=== PATIENT | female | born 1995 | race Caucasian/White ===

== ENCOUNTER 2017-11-05 10:58 | Emergency (ER) ==
[2017-11-05 11:04] VITALS: BP 122/57; TEMP 98.6; BMI 21.0
--- NOTE | 2017-11-05 11:38 | ED.PDOC ---
General ED Provider: Dr. TANVIR BREWER Chief Complaint: Back Pain Stated Complaint: Low back pain. 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 Believes it is due to bending and stretching associates with her job function. Denies other associated trauma although pt states has previously been involve in accidents and falling down events. Was not bothered by pain pror to most recent events. Denies radiculating symptoms-primarily located in lower lumbar spine midline. Denies symptoms and chance of . States FDLMP 1 mo ago with anticipation of startiing her menses in next few days. Time Seen by Physician: 11:30 Mode of Arrival: Walk-In Information Source: Patient Exam Limitations: No limitations Primary Care Provider: TANVIR ALLEN Nursing and Triage Documentation Reviewed and Agree: Yes Reviewed sepsis parameters & appropriate labs ordered?: Yes System Inflammatory Response Syndrome: Not Applicable Sepsis Protocol: For patient's 13 years and over: Temp is 96.8 and below OR 101 and greater Pulse >90 BPM Resp >20/minute Acutely Altered Mental Status Are patient's symptoms suggestive of a new infection, such as: -Pneumonia -Skin, Soft Tissue -Endocarditis -UTI -Bone, Joint Infection -Implantable Device -Acute Abdominal Infection -Wound Infection -Meningitis -Blood Stream Catheter Infection -Unknown System Inflammatory Response Syndrome: Not Applicable Musculoskeletal Complaint Exam - Back Pain Complaint/Exam Mechanism of Injury: Reports: No known trauma Symptoms Are: Still present Timing: Constant Episodes Lasting: Minutes Initial Severity: Moderate Current Severity: Moderate Location: Reports: Discrete, Radiating (Coccyx) Character: Reports: Aching, Spasmodic Aggravating: Reports: Movements Alleviating: Reports: Rest, Heat, OTC meds Associated Signs and Symptoms: Denies: Swelling, Redness, Bruising, Fever, Weakness, Numbness, Tingling, Abdominal pain, Flank pain, Bladder incontinence, Bowel incontinence, Weight loss, Pain with weight bearing Related History: Reports: Occupational injury, Previous back injury. Denies: Similar episode TAD Risk Factors: Reports: None AAA Risk Factors: Reports: None Cauda Equina Risk Factors: Reports: None Epidural Abcess Risk Factors: Reports: None Related Surgical History: Reports: None Focal Tenderness: Yes Paraspinal Muscle Tenderness: Yes Paraspinal Muscle Spasm: Yes (Lt sided >Rt Sided Lumbar sacral region) Scoliosis: No Lordosis: No Kyphosis: No SLR Test: Right Negative, Left Negative Focal Weakness: Present: None Focal Sensory Loss: Present: None Gait: Present: Normal Differential Diagnoses: Strain Review of Systems - Review Of Systems Constitutional: Reports: No symptoms Eyes: Reports: No symptoms Ears, Nose, Mouth, Throat: Reports: No symptoms Respiratory: Reports: No symptoms Cardiac: Reports: No symptoms GI: Reports: No symptoms : Reports: No symptoms Musculoskeletal: Reports: Back pain Skin: Reports: No symptoms Neurological: Reports: No symptoms Endocrine: Reports: No symptoms Hematologic/Lymphatic: Reports: No symptoms All Other Systems: Reviewed and Negative Past Medical History - Past Medical History Previously Healthy: Yes Endocrine: Reports: None Cardiovascular: Reports: None Respiratory: Reports: None Hematological: Reports: None Gastrointestinal: Reports: None Genitourinary: Reports: None Neuro/Psych: Reports: None Musculoskeletal: Reports: None Cancer: Reports: None Last Menstrual Period: october 07, 2017 - Surgical History General Surgical History: Reports: None - Family History Family History: Reports: None - Social History Smoking Status: Current every day smoker, Heavy tobacco smoker Hx Substance Use: Yes Alcohol Screening: None - Immunizations Tetanus Shot up to Date: Yes Physical Exam - Physical Exam Appearance: Well-appearing, Well-nourished Ill-appearing: None Pain Distress: Moderate Eyes: BRIGETTE, EOMI, Conjunctiva clear ENT: Ears normal, Nose normal, Oropharynx normal Respiratory: Airway patent, Breath sounds clear, Breath sounds equal, Respirations nonlabored Cardiovascular: RRR, Pulses normal, No rub, No murmur GI/: Soft, Nontender, No masses, Bowel sounds normal, No Organomegaly Musculoskeletal: Normal strength (Tenderness to palpation Lumbar spine-Mid lumbar region none SI or SC), ROM intact (neg slr ), No edema, No calf tenderness, Limited ROM (Minimal decreased forward flexion ,rotation and sidebending wnl) Skin: Warm, Dry, Normal color Neurological: Sensation intact, Motor intact, Reflexes intact, Cranial nerves intact, Alert, Oriented Psychiatric: Affect appropriate, Mood appropriate Re-Evaluation - Re-Evaluation Time of Re-Evaluation: 12:30 Status: Unchanged Vital Signs Stable: Yes Additional Comments: Advised patient UCG Is Positive. Unable to do imaging Critical Care Note - Critical Care Note Total Time (mins): 0 Course - Course Orders, Labs, Meds: Lab Review 11/05/17 11/05/17 11:53 11:59 Urine Color Dark Urine Clarity Slightly Urine pH 7.0 Ur Specific [place] 1.025 Urine Protein Trace Urine Glucose (UA) Negative Urine Ketones Trace Urine Blood 3+ Urine Nitrite Negative Urine Bilirubin Negative Urine Urobilinogen 1.0 Ur Leukocyte Esterase Negative Urine Microscopic RBC 20-30 Urine Microscopic WBC 5-10 Ur Squamous Epith Cells 0-2 Urine Bacteria Trace Urine Test Positive Orders Category Date Time Status UA [URINALYSIS C & S IF INDICATED] Stat LAB 11/05/17 11:59 Completed URINE CULTURE Stat LAB 11/05/17 12:09 Received URINE Stat LAB 11/05/17 11:53 Completed Vital Signs: Temp Pulse Resp BP Pulse Ox 11/05/17 10:58 98.6 F 98 H 16 122/57 L 98 Departure - Departure Time of Disposition: 13:30 Disposition: HOME SELF-CARE Discharge Problem: Lumbar strain, , test positive Instructions: Low Back Strain (ED) Condition: Good Pt referred to PMD for follow-up: Yes IPMP verified?: No Additional Instructions: Avoid working until follow up with Dr Ludwig Avoid NSAID analgesics OK to use Tylenol for pain as needed. Pre vitamin Rx -Take 1 daily Allergies/Adverse Reactions: Allergies No Known Drug Allergies Adverse Reaction (Verified 11/05/17 11:06) Home Medications: Ambulatory Orders Diphenhydramine HCl [Benadryl] 50 mg PO Q6H PRN 05/27/15 Ibuprofen 600 mg PO Q4H PRN 16/15 Prenat Vit 17/Iron/Folic/Om3,6 [Elite-Ob 400 Capsule] 1 each PO DAILY #30 capsule 11/05/17 Disposition Discussed With: Patient
== END 2017-11-05 13:46 | disposition home or self-care (01) ==
LOC: ED 10:58
DX: S39.012A Strain of muscle, fascia and tendon of lower back, initial encounter (principal); Z33.1 Pregnant state, incidental; X50.9XXA Other and unspecified overexertion or strenuous movements or postures, initial encounter; F17.210 Nicotine dependence, cigarettes, uncomplicated
CPT/HCPCS: 81001; 81025; 87086; 99283

== ENCOUNTER 2018-11-08 10:18 | Emergency (ER) ==
[2018-11-08 10:27] VITALS: BP 118/80; TEMP 98.1; BMI 26.9
[2018-11-08] MEDS ORDERED: SODIUM CHLORIDE 1,000 ML IV STA (11:05)
[2018-11-08] MEDS ORDERED: ZOFRAN 4 MG/2 ML IVP STA (11:30)
--- NOTE | 2018-11-08 11:43 | US ---
EXAM: OB ultrasound HISTORY: , pain. FINDINGS: OB ultrasound transvaginal. Transvaginal approach imaging was performed for improved reso lution and anatomic definition. Single live intrauterine gestation with heart rate 143 beats per minute. Gestational and yolk sacs a ppear normal. No subchorionic hemorrhage is identified. [place]-rump length indicates 7 weeks, 1 day gestation with expected date of delivery on 06/26/2019. The uterus measured 12.7 x 4.9 x 6.6 cm. The right ovary measured 3.7 x 2.9 x 2.4 cm and the left ov sera 2.5 x 1.3 x 1.3 cm. Ovaries appeared to have adequate blood flow. The right ovary had a 2.6 cm c yst with simple character. Trace amount of right adnexal ascites. IMPRESSION: 1. Single live intrauterine gestation of 7 weeks, 1 day with expected date of delivery 06/26/2019. Heart rate 143 beats per minute. No gestational abnormalities identified. 3. Small cyst on the right ovary. 4. Trace amount of simple pelvic ascites in the right adnexa, nonspecific.
--- NOTE | 2018-11-08 14:47 | ED.PDOC ---
General ED Provider: Dr. LAUREN HEREDIA Chief Complaint: Abdominal Pain Stated Complaint: started getting nauseated and vomited about 8 times over past 2 days. she is 7 weeks Time Seen by Physician: 10:19 (seen with RN AND LATER WITH TESFAYE GARRIDO ON D/ C ) Mode of Arrival: Walk-In Information Source: Patient Exam Limitations: No limitations (A0) Primary Care Provider: TANVIR ALLEN Nursing and Triage Documentation Reviewed and Agree: Yes Does patient meet sepsis criteria?: No System Inflammatory Response Syndrome: Not Applicable Sepsis Protocol: For patient's 13 years and over: Temp is 96.8 and below OR 101 and greater Pulse >90 BPM Resp >20/minute Acutely Altered Mental Status Are patient's symptoms suggestive of a new infection, such as: -Pneumonia -Skin, Soft Tissue -Endocarditis -UTI -Bone, Joint Infection -Implantable Device -Acute Abdominal Infection -Wound Infection -Meningitis -Blood Stream Catheter Infection -Unknown GI Complaint Exam - Vomiting/Diarrhea Complaint/Exam Onset/Duration: 2 DAYS Symptoms Are: Resolved Episodes of Vomiting over last 24 Hours: 4 Episodes of Diarrhea Over Last 24 Hours: 0 Initial Severity: Mild Current Severity: None Character of Vomiting: Reports: Non-bilious Aggravating: Reports: None Alleviating: Reports: None Associated Signs and Symptoms: Denies: Dizziness, Light-headedness, Melena, Hematemesis, Fever, Abdominal pain, Cramping : 2 Para: 1 Hx Total # of Abortions (Spontaneous & Elective): 0 Menses: Regular Non-GI Risk Factors: Reports: None Surgical Obstruction Risk Factors: Reports: None Related Surgical History: Reports: None Abdominal Findings: Present: None Kussmaul Respirations Present: No Differential Diagnoses: Other () Review of Systems - Review Of Systems Constitutional: Reports: No symptoms Eyes: Reports: No symptoms Ears, Nose, Mouth, Throat: Reports: No symptoms Respiratory: Reports: No symptoms Cardiac: Reports: No symptoms GI: Reports: Nausea, Vomiting : Reports: No symptoms Musculoskeletal: Reports: No symptoms Skin: Reports: No symptoms Neurological: Reports: No symptoms Endocrine: Reports: No symptoms Hematologic/Lymphatic: Reports: No symptoms All Other Systems: Reviewed and Negative Past Medical History - Past Medical History Previously Healthy: Yes Endocrine: Reports: None Cardiovascular: Reports: None Respiratory: Reports: None Hematological: Reports: None Gastrointestinal: Reports: None Genitourinary: Reports: None Neuro/Psych: Reports: None Musculoskeletal: Reports: None Cancer: Reports: None Last Menstrual Period: September - Surgical History General Surgical History: Reports: None - Family History Family History: Reports: None - Social History Smoking Status: Former smoker Hx Substance Use: No Alcohol Screening: None - Immunizations Tetanus Shot up to Date: Yes Physical Exam - Physical Exam Appearance: Well-appearing, No pain distress, Well-nourished Eyes: BRIGETTE, EOMI, Conjunctiva clear ENT: Ears normal, Nose normal, Oropharynx normal Respiratory: Airway patent, Breath sounds clear, Breath sounds equal, Respirations nonlabored Cardiovascular: RRR, Pulses normal, No rub, No murmur GI/: Soft, Nontender, No masses, Bowel sounds normal, No Organomegaly Musculoskeletal: Normal strength, ROM intact, No edema, No calf tenderness Skin: Warm, Dry, Normal color Neurological: Sensation intact, Motor intact, Reflexes intact, Cranial nerves intact, Alert, Oriented Psychiatric: Affect appropriate, Mood appropriate Interpretation - Radiology Interpretation Radiology Interpretation By: Radiologist Radiology Results: No acute changes Re-Evaluation - Re-Evaluation Time of Re-Evaluation: 12:00 Status: Improved Vital Signs Stable: Yes Pain Level: 0 Appearance: NAD Lungs: Clear Skin: Warm and Dry Neuro: Alert and Oriented X3 CV: RRR Additional Comments: SEEN 1300 NO VOMITING NO PAIN - Re-Evaluation Time of Re-Evaluation: 14:49 Status: Improved Vital Signs Stable: Yes Pain Level: 0 Appearance: NAD Skin: Warm and Dry Neuro: Alert and Oriented X3 CV: RRR Critical Care Note - Critical Care Note Total Time (mins): 0 Course - Course Hematology/Chemistry: 11/08/18 10:40 11/08/18 10:40 Orders, Labs, Meds: Lab Review 11/08/18 11/08/18 11/08/18 10:35 10:40 10:40 WBC 10.22 H RBC 4.57 Hgb 14.0 Hct 40.5 MCV 88.6 MCH 30.6 MCHC 34.6 RDW Coeff of Gabrielle 12.3 Plt Count 246 Immature Gran % (Auto) 0.4 Neut % (Auto) 77.4 Lymph % (Auto) 14.5 Anderson % (Auto) 7.0 Eos % (Auto) 0.2 Baso % (Auto) 0.5 Immature Gran # (Auto) 0.0 Neut # (Auto) 7.9 H Lymph # (Auto) 1.5 Anderson # (Auto) 0.7 Eos # (Auto) 0.0 Baso # (Auto) 0.1 Sodium 135.2 Potassium 3.70 Chloride 105.2 Carbon Dioxide 19.2 L Anion Gap 14.50 BUN 9.1 Creatinine 0.46 L Estimated GFR (MDRD) 170.00 BUN/Creatinine Ratio 19.78 Glucose 101.6 Lactic Acid Calcium 9.77 Total Bilirubin 0.65 AST 27.5 ALT 30.4 Alkaline Phosphatase 80.3 Total Protein 7.57 Albumin 4.68 Globulin 2.89 Albumin/Globulin Ratio 1.61 Procalcitonin Urine Color Yellow Urine Clarity Turbid Urine pH 8.5 Ur Specific [place] 1.020 Urine Protein Trace Urine Glucose (UA) Negative Urine Ketones 2+ Urine Blood Negative Urine Nitrite Negative Urine Bilirubin Negative Urine Urobilinogen 0.2 Ur Leukocyte Esterase 1+ Urine Microscopic WBC 0-2 Ur Squamous Epith Cells 2-5 Amorphous Sediment 3+ Urine Bacteria Trace 11/08/18 11/08/18 11/08/18 10:40 10:40 12:45 WBC RBC Hgb Hct MCV MCH MCHC RDW Coeff of Gabrielle Plt Count Immature Gran % (Auto) Neut % (Auto) Lymph % (Auto) Anderson % (Auto) Eos % (Auto) Baso % (Auto) Immature Gran # (Auto) Neut # (Auto) Lymph # (Auto) Anderson # (Auto) Eos # (Auto) Baso # (Auto) Sodium Potassium Chloride Carbon Dioxide Anion Gap BUN Creatinine Estimated GFR (MDRD) BUN/Creatinine Ratio Glucose Lactic Acid 1.06 Calcium Total Bilirubin AST ALT Alkaline Phosphatase Total Protein Albumin Globulin Albumin/Globulin Ratio Procalcitonin < 0.05 Urine Color Yellow Urine Clarity Clear Urine pH 7.0 Ur Specific [place] 1.020 Urine Protein Negative Urine Glucose (UA) Negative Urine Ketones 4+ Urine Blood Negative Urine Nitrite Negative Urine Bilirubin Negative Urine Urobilinogen 0.2 Ur Leukocyte Esterase Negative Urine Microscopic WBC Ur Squamous Epith Cells Amorphous Sediment Urine Bacteria Orders Category Date Time Status ED IV/MEDIPORT/POWERPORT .ONCE EMERGENCY 11/08/18 11:05 Active BLOOD CULTURE Stat LAB 11/08/18 10:40 Ordered CBC W/ AUTO DIFF Stat LAB 11/08/18 10:40 Completed COMPREHENSIVE METABOLIC PANEL Stat LAB 11/08/18 10:40 Completed LACTIC ACID Stat LAB 11/08/18 10:40 Completed PROCALCITONIN Stat LAB 11/08/18 10:40 Completed UA [URINALYSIS C & S IF INDICATED] Stat LAB 11/08/18 12:45 Completed UA [URINALYSIS C & S IF INDICATED] Stat LAB 11/08/18 14:30 Received URINALYSIS C & S IF INDICATED Stat LAB 11/08/18 10:35 Completed 0.9 % Sodium Chloride [Saline Flush] MEDS 11/08/18 11:05 Active 1 syr IVF PRN PRN Ondansetron HCl/Pf [Zofran 4 mg/2 ml] MEDS 11/08/18 11:30 Discontinued 4 mg IVP ONCE STA Sodium Chloride 0.9% [Sodium Chloride] 1,000 ml MEDS 11/08/18 11:05 Discontinued IV BOLUS ULTRASOUND OB/TV [U/S OB/TV] Stat RADS 11/08/18 10:38 Completed Medications Generic Name Dose Route Start Last Admin Trade Name Freq PRN Reason Stop Dose Admin Sodium Chloride 1 syr 11/08/18 11:05 11/08/18 11:23 Saline Flush IVF 1 syr PRN PRN Administration To flush IV Discontinued Medications Generic Name Dose Route Start Last Admin Trade Name Freq PRN Reason Stop Dose Admin Sodium Chloride 1,000 mls @ 1,000 mls/hr 11/08/18 11:05 11/08/18 11:23 Sodium Chloride IV 11/08/18 12:04 1,000 mls/hr BOLUS STA Administration Ondansetron HCl 4 mg 11/08/18 11:30 11/08/18 11:38 Zofran 4 Mg/2 Ml IVP 11/08/18 11:31 4 mg ONCE STA Administration Vital Signs: Temp Pulse Resp BP Pulse Ox 11/08/18 10:18 98.1 F 80 20 118/80 98 Departure - Departure Time of Disposition: 14:49 Disposition: HOME SELF-CARE Discharge Problem: Hyperemesis arising during Instructions: Acute Nausea and Vomiting (ED), Abdominal Pain (ED) Condition: Good Pt referred to PMD for follow-up: Yes IPMP verified?: No Additional Instructions: Please call your Family Physician as soon as possible to schedule a follow-up appointment. Allergies/Adverse Reactions: Allergies No Known Drug Allergies Adverse Reaction (Verified 11/08/18 10:34) Home Medications: Ambulatory Orders Prenat Vit 17/Iron/Folic/Om3,6 [Elite-Ob 400 Capsule] 1 each PO DAILY #30 capsule 11/05/17
== END 2018-11-08 15:25 | disposition home or self-care (01) ==
LOC: ED 10:18
DX: O21.0 Mild hyperemesis gravidarum (principal); Z3A.01 Less than 8 weeks gestation of pregnancy
CPT/HCPCS: 36415; 80053; 81001; 83605; 84145; 85025; 87040; 96361; 96374; 99283